=== PATIENT | male | born 1970 ===

== ENCOUNTER 2018-03-02 22:06 | Emergency (ER) | payer SELFPAY ==
[2018-03-02 23:01] VITALS: TEMP 98.3; O2SAT 100
[2018-03-02] MEDS ORDERED: Sodium Chloride 0.9% 1,000 ML IV SCH (23:45)
--- NOTE | 2018-03-02 23:47 | ED PDOC ---
ATTENTION PHYSICIANS Hyperglycemia/Hypoglycemia <Ingris Valdez - Last Filed: 03/02/18 23:49> History Per: Patient History/Exam Limitations: no limitations Onset/Duration Of Symptoms: Hrs Current Diabetic Medications: Oral Medication : The patient does not have any of the infectious symptoms listed except for those marked. Additional History Per: Family Additional Complaint(s): CC: high sugar HPI: 47 YO Male with PMHx of DMII, HLD presents to [facility] ED for elevated sugars. Pt states that since early this AM he has not felt well. He has been thirsty, increase urination, and generalized upper and lower extremity discomfort. Took his PO meds today, and due to elevated FSG, pt took 3 metformin 1000mg today. Initial sugar was measured at 2:00PM 276, he took the second Metformin, next FSG was at 5:00PM 250 where he took the third metformin. Pt did not feel his usual self which brought him to the hospital. Of note, pt had a large dinner ( rice, plantains, beef) last night with 2 beers; eggs, toast and coffee this AM. PMD: Dr. Meghna Dumas PMHx: NIDDM, HLD SurgHx: denies FHx: DM SH: social ETOH, denies smoking and illicit drug use Meds: metformin, glipizide, statin and asa Allergies: NKDA <Angela Way - Last Filed: 03/03/18 01:59> <Jennifer,Manjeet Y - Last Filed: 03/03/18 21:31> Time Seen by Provider: 03/02/18 22:46 Chief Complaint (Nursing): High Blood Sugar Supervising Attending Note - Supervising Attending Note The Documented history was done by the: Physician Logging Shovel Operator The documented physical exam was done by the: Physician Logging Shovel Operator The documented procedures were done by the: Physician Logging Shovel Operator - Attestation: I have personally seen and examined this patient.: Yes I have fully participated in the care of the patient.: Yes I have reviewed all pertinent clinical information, including history, physical exam and plan: Yes <Ingris Valdez - Last Filed: 03/02/18 23:49> - Supervising Attending Note The Documented history was done by the: Physician Logging Shovel Operator The documented physical exam was done by the: Physician Logging Shovel Operator The documented procedures were done by the: Physician Logging Shovel Operator - Attestation: I have personally seen and examined this patient.: Yes I have fully participated in the care of the patient.: Yes I have reviewed all pertinent clinical information, including history, physical exam and plan: Yes <Manjeet Rodriguez - Last Filed: 03/03/18 21:31> Past Medical History Vital Signs: Last Vital Signs Temp 98.3 F 03/02/18 22:57 Pulse Resp BP Pulse Ox 100 03/02/18 23:47 <Sa Courtneysergio Gonzalez - Last Filed: 03/02/18 23:49> Vital Signs: Last Vital Signs Temp 98.3 F 03/02/18 22:57 Pulse Resp BP Pulse Ox 100 03/02/18 22:57 - Medical History PMH: Diabetes, HTN - Surgical History Surgical History: No Surg Hx - Family History Family History: States: Diabetes - Living Arrangements Living Arrangements: With Family - Social History Current smoker - smoking cessation education provided: No Alcohol: Social Drugs: Denies <Angela Way - Last Filed: 03/03/18 01:59> Vital Signs: Last Vital Signs Temp 98.3 F 03/02/18 22:57 Pulse 65 03/03/18 00:05 Resp 15 03/03/18 00:05 BP 133/94 H 03/03/18 00:05 Pulse Ox 100 03/03/18 00:05 <JenniferManjeet Shaw - Last Filed: 03/03/18 21:31> - Home Medications Home Medications: Ambulatory Orders Medication Instructions Recorded Aspirin [Aspirin EC] 81 mg PO DAILY 03/10/16 GlipiZIDE [Glipizide] 10 mg PO DAILY 03/10/16 Indomethacin 25 mg PO TID #21 capsule 03/10/16 Lisinopril [Zestril] 20 mg PO DAILY 03/10/16 Metformin HCl 1,000 mg PO BID 03/10/16 Mv-Mn/Folic Acid/Lutein/Fge022 1 each PO DAILY 03/10/16 [Nawaf Multivit For Men Caplet] [place] 1 tab PO DAILY 03/10/16 - Allergies Allergies/Adverse Reactions: Allergies Allergy/AdvReac Type Severity Reaction Status Date / Time No Known Allergies Allergy Verified 03/10/16 13:45 Review of Systems Constitutional: Positive for: Malaise. Negative for: Weakness Cardiovascular: Negative for: Chest Pain, Palpitations Respiratory: Negative for: Cough, Shortness of Breath Gastrointestinal: Negative for: Nausea, Vomiting, Abdominal Pain Genitourinary Male: Negative for: Dysuria <Angela Way - Last Filed: 03/03/18 01:59> Physical Exam - Physical Exam Appears: Positive for: No Acute Distress Head Exam: Positive for: ATRAUMATIC, NORMAL INSPECTION Skin: Negative for: Diaphoresis Eye Exam: Positive for: Normal appearance Cardiovascular/Chest: Positive for: Regular Rate, Rhythm. Negative for: Murmur Respiratory: Positive for: Normal Breath Sounds. Negative for: Crackles Gastrointestinal/Abdominal: Positive for: Normal Exam, Bowel Sounds, Soft. Negative for: Tenderness Back: Positive for: Normal Inspection. Negative for: L CVA Tenderness, R CVA Tenderness Extremity: Positive for: Normal ROM. Negative for: Pedal Edema Neurologic/Psych: Positive for: Alert <Angela Way - Last Filed: 03/03/18 01:59> - Laboratory Results Result Diagrams: 03/02/18 23:50 03/02/18 23:50 - ECG O2 Sat by Pulse Oximetry: 100 - Progress ED Course And Treament: 47 YO Male with NIDDM, HLD with hyperglycemia -cbc -cmp -IVF -EKG -udip Workup reviewed; wnl with elevated BGS 155. Udip neg EKG sig for NSR with rate of 60, no acute ST changes 0136--pt seen and reevaluated States that he feels better, no longer having any malaise Pt educated about diet and lifestyle modifications D/c home with follow up with PMD in 1-2 days Cont taking PO meds as prescribed Pt agrees with plan <SeamusAngela - Last Filed: 03/03/18 01:59> - Laboratory Results Result Diagrams: 03/02/18 23:50 03/02/18 23:50 <Manjeet Rodriguez Y - Last Filed: 03/03/18 21:31> Medical Decision Making Medical Decision Making: Time: 0:00 Patient signed out to me by Dr. Valdez pending labs and revaluation. Patient's sugar level are normal now and he is feeling better. <Manjeet Rodriguez Y - Last Filed: 03/03/18 21:31> Disposition <Ingris Valdez - Last Filed: 03/02/18 23:49> - Patient ED Disposition Is Patient to be Admitted: No - Disposition Disposition: Routine/Home Disposition Time: 02:02 <Angela Way - Last Filed: 03/03/18 01:59> <Jordy Rodriguezduane Colin - Last Filed: 03/03/18 21:31> - Clinical Impression Clinical Impression: Hyperglycemia - Disposition Referrals: Meghna Dumas [Staff Provider] - Condition: IMPROVED Additional Instructions: follow up with your primary doctor in 1-2 days return to the ED with any worsening or concerning symptoms Instructions: Hyperglycemia, Adult (DC) Forms: [facility] (Amharic) Print Language: PORTUGUESE
[2018-03-03 00:06] VITALS: BP 133/94; PULSE 65; RESP 15
[2018-03-03 00:08] LABS: BASO % 0.4 % (0.0-2.0); EOS # 0.4 K/uL (0.0-0.7); EOS % 3.9 % (0.0-4.0); HEMOGLOBIN 16.1 g/dL (12.0-18.0); LYMPH # 4.7 K/uL (1.0-4.3); LYMPH % 44.1 % (20.0-40.0); MEAN CELL VOLUME 88.7 fl (80.0-94.0); MEAN CORPUSCULAR HEMOGLOBIN 31.3 pg (27.0-31.0); MEAN CORPUSCULAR HGB CONC 35.3 g/dL (33.0-37.0); MEAN PLATELET VOLUME 10.6 fl (7.2-11.7); MONO # 0.7 K/uL (0.0-0.8); MONO % 6.2 % (0.0-10.0); NEUT # 4.8 K/uL (1.8-7.0); NEUT % 45.4 % (50.0-75.0); NRBC % 0.2 % (0.0-0.0); RBC 5.13 Mil/uL (4.40-5.90); RED CELL DISTRIBUTION WIDTH 12.9 % (11.5-14.5); WHITE BLOOD COUNT 10.7 K/uL (4.8-10.8)
[2018-03-03 00:10] LABS: ALB/GLOB RATIO 1.4 (1.0-2.1); ALBUMIN 4.6 g/dL (3.5-5.0); ALT/SGPT 42 U/L (21-72); AST/SGOT 29 U/L (17-59); BLOOD UREA NITROGEN 14 mg/dl (9-20); CALCIUM 9.5 mg/dL (8.4-10.2); GFR AFRICAN-AMERICAN > 60; GFR NON-AFRICAN AMERICAN > 60
--- NOTE | 2018-03-03 07:54 | CARD ---
APPROVED REPORT Date of service: 03/03/2018 <Conclusion> Normal sinus rhythm Normal ECG
== END 2018-03-03 02:10 | disposition home or self-care (01) ==
LOC: H.ER 22:06
DX: E11.65 Type 2 diabetes mellitus with hyperglycemia (principal); Z79.84 Long term (current) use of oral hypoglycemic drugs; E78.5 Hyperlipidemia, unspecified; I10 Essential (primary) hypertension; Z79.82 Long term (current) use of aspirin
CPT/HCPCS: 80053; 82948; 85025; 93005; 99283; J7030